=== PATIENT | female | born 1990 | race American Indian/Alaskan Native ===

== ENCOUNTER 2016-10-09 14:42 | Emergency (ER) | payer MEDICAID ==
[2016-10-09 16:51] LABS: Basophils % (Auto) 0.9 % (0.0-1.8); Eosinophils % (Auto) 1.7 % (0.0-4.3); Hematocrit 39.4 % (30.3-42.9); Hemoglobin 13.1 gm/dl (10.1-14.3); Mean Corpuscular HGB Conc 33 % (30-34); Mean Corpuscular Hemoglobin 29 pg (28-32); Mean Corpuscular Volume 89 fl (79-97); Platelet Count 219 K/mm3 (140-440); Red Blood Count 4.44 M/mm3 (3.65-5.03); Red Cell Distribution Width 15.2 % (13.2-15.2); White Blood Count 7.5 K/mm3 (4.5-11.0)
[2016-10-09 17:04] LABS: Bilirubin,Urine NEG (Negative); Blood,Urine LG (Negative); Ketones,Urine 20 mg/dL (Negative); Leukocyte Esterase,Urine NEG (Negative); Mucus,Urine FEW /HPF; Nitrite,Urine NEG (Negative); Protein,Urine <15 mg/dL mg/dL (Negative); Urobilinogen,Urine < 2.0 mg/dL (<2.0)
[2016-10-09 17:07] LABS: WBC,Urine < 1.0 /HPF (0.0-6.0)
[2016-10-09] MEDS ORDERED: ZOFRAN IV ONE (18:18)
[2016-10-09 19:28] LABS: Anion Gap 21 mmol/L; BUN/Creatinine Ratio 11.66; Blood Urea Nitrogen 7 mg/dL (7-17); Calcium 8.8 mg/dL (8.4-10.2); Carbon Dioxide 23 mmol/L (22-30); Chloride 97.4 mmol/L (98-107); Glucose 79 mg/dL (65-100); Potassium 4.3 mmol/L (3.6-5.0); Sodium 137 mmol/L (137-145)
[2016-10-09] MEDS ORDERED: MORPHINE IV ONE (19:38)
--- NOTE | 2016-10-09 20:12 | Emergency Department Report ---
ED General Adult HPI - General Chief complaint: Extremity Injury, Lower Stated complaint: RT LEG SWOLLEN/PAIN Time Seen by Provider: 10/09/16 20:11 Source: patient, RN notes reviewed Mode of arrival: Ambulatory Limitations: No Limitations - History of Present Illness Initial comments: This is a 26-year-old female. She is previously unknown to me. She is 4, para 3. Last menstrual period is 09/23/2016. The patient does not currently have an [facility] doctor. The patient presents to the ER with 2 complaints. The first complaint is right lower extremity pain and swelling. This is been going on for 3 days. The pain is achy. It worsens with range of motion. It decreases with rest. There is no chest pain. There is no shortness of breath. There is no contralateral leg pain or leg swelling. No recent trips greater than 4 hours. No recent hospital admissions. The patient's second complaint is abdominal pain and vaginal bleeding. This is crampy. This is been going on for the past day or so. There is no nausea, vomiting or diarrhea. No irritative or obstructive urinary symptoms. -: Gradual Location: abdomen, genitals, right, lower extremity Severity scale (0 -10): 10 Quality: aching Consistency: intermittent Improves with: other (per hpi) Worsens with: other (per hpi) Associated Symptoms: denies: confusion, chest pain, cough, headaches, loss of appetite, malaise, nausea/vomiting, seizure, shortness of breath, syncope, weakness - Related Data Previous Rx's Medication Instructions Recorded Last Taken Type Doxylamine/Pyridoxine HCl 1 each PO QHS PRN #30 tablet. 10/09/16 Unknown Rx [Luciana Dove 10-10 mg Tablet] Vit W-Ca,Fe,FA(<1 mg) 1 each PO QDAY #30 tablet 10/09/16 Unknown Rx [ Vitamins] Allergies Allergy/AdvReac Type Severity Reaction Status Date / Time ibuprofen AdvReac stomach Verified 10/09/16 16:13 irritation orange juice AdvReac Itching Verified 10/09/16 16:13 ED Review of Systems ROS: Stated complaint: RT LEG SWOLLEN/PAIN Other details as noted in HPI ED Past Medical Hx - Past Medical History Hx Hypertension: No Hx Diabetes: No Hx Deep Vein Thrombosis: No Hx GERD: Yes Hx Sickle Cell Disease: No (trait) Hx Seizures: No Hx Asthma: No Hx HIV: No Additional medical history: Gastic ulcers. OBESITY - Surgical History Hx Cholecystectomy: Yes Additional Surgical History: x2. pins in each hip - Social History Smoking Status: Current Every Day Smoker Substance Use Type: Alcohol - Medications Home Medications: Home Medications Medication Instructions Recorded Confirmed Last Taken Type Doxylamine/Pyridoxine HCl 1 each PO QHS PRN #30 tablet. 10/09/16 Unknown Rx [Diclegis Dr 10-10 mg Tablet] Vit W-Ca,Fe,FA(<1 mg) 1 each PO QDAY #30 tablet 10/09/16 Unknown Rx [ Vitamins] ED Physical Exam - General Limitations: No Limitations General appearance: alert, in no apparent distress - Head Head exam: Present: atraumatic, normocephalic - Eye Eye exam: Present: normal appearance, EOMI. Absent: nystagmus - ENT ENT exam: Present: normal exam, normal orophraynx, mucous membranes moist, normal external ear exam - Neck Neck exam: Present: normal inspection, full ROM. Absent: tenderness, meningismus - Respiratory Respiratory exam: Present: normal lung sounds bilaterally. Absent: respiratory distress, wheezes, rales, rhonchi, stridor, chest wall tenderness, accessory muscle use, decreased breath sounds, prolonged expiratory - Cardiovascular Cardiovascular Exam: Present: regular rate, normal rhythm, normal heart sounds. Absent: bradycardia, tachycardia, irregular rhythm, systolic murmur, diastolic murmur, rubs, gallop - GI/Abdominal GI/Abdominal exam: Present: soft, normal bowel sounds. Absent: distended, tenderness, guarding, rebound, rigid, pulsatile mass - External exam: Present: normal external exam Speculum exam: Present: vaginal bleeding Bi-manual exam: Present: normal bi-manual exam, other (escorted by Denisha Sanchez). Absent: cervical motion tendernes, adnexal tenderness, adnexal mass - Extremities Exam Extremities exam: Present: normal inspection, full ROM, tenderness, normal capillary refill, calf tenderness (rle pain swelling) - Back Exam Back exam: Present: normal inspection, full ROM. Absent: tenderness, CVA tenderness (R), CVA tenderness (L), muscle spasm, paraspinal tenderness, vertebral tenderness - Neurological Exam Neurological exam: Present: alert, oriented X3, normal gait, other (Extraocular movements intact. Tongue midline. No facial droop. Facial sensation intact to light touch in the V1, V2, V3 distribution bilaterally. 5 and 5 strength in 4 extremities.. Sensation is intact to light touch in 4 extremities.). Absent : motor sensory deficit - Psychiatric Psychiatric exam: Present: normal affect, normal mood - Skin Skin exam: Present: warm, dry, intact, normal color. Absent: rash ED Course Vital Signs 10/09/16 10/09/16 16:16 22:03 Temperature 98.2 F 98.5 F Pulse Rate 100 H 98 H Respiratory 19 18 Rate Blood Pressure 153/103 Blood Pressure 132/82 [Left] O2 Sat by Pulse 100 99 Oximetry - Reevaluation(s) Reevaluation #1: 10/09/16 22:08 differential diagnosis: Right lower extremity DVT, ectopic , heterotopic , failure, miscarriage Assessment and plan: 26-year-old female with 2 issues. Patient's right lower extremity pain and swelling is found to be a right peroneal vein DVT, distal to the popliteal trifurcation. Given that she is actively bleeding, and that she is , and that a pelvic ultrasound does not definitively exclude an ectopic , I will withhold systemic anticoagulation. The patient is not a candidate for aspirin or ibuprofen as she is allergic to these medications. I have discussed this with vascular surgery on-call, Dr. Reis. We agree that the patient is hemodynamically stable, and reliable, and she can follow-up as an outpatient for repeat right lower extremity DVT study and 1 week to assure that there is no clot propagation. Intervention the patient's , a pelvic ultrasound suggested a small cystic focus in the endometrial cavity, corresponding to 5 weeks, likely representing early viable gestation versus early gestational failure. Quantitative hCG was approximately 600. This was discussed with gynecology, Dr. Briggs, she agreed with plan for patient to return in 2 days for repeat quantitative hCG, pelvic rest, and close follow- up. from vaginal bleeding perspective, the patient is hemodynamically stable without tender abdomen, she does not require admission for observation for this. For a right lower extremity DVT, possibly provoked by , distal to the trifurcation, patient does not require admission, and will need to follow-up. ED Medical Decision Making - Lab Data Result diagrams: 10/09/16 16:26 10/09/16 16:46 Vital Signs 10/09/16 16:16 Temperature 98.2 F Pulse Rate 100 H Respiratory 19 Rate Blood Pressure 153/103 O2 Sat by Pulse 100 Oximetry Lab Results 10/09/16 10/09/16 10/09/16 Range/Units 16:26 16:26 16:46 WBC 7.5 (4.5-11.0) K/mm3 RBC 4.44 (3.65-5.03) M/mm3 Hgb 13.1 (10.1-14.3) gm/dl Hct 39.4 (30.3-42.9) % MCV 89 (79-97) fl MCH 29 (28-32) pg MCHC 33 (30-34) % RDW 15.2 (13.2-15.2) % Plt Count 219 (140-440) K/mm3 Lymph % (Auto) 20.9 (13.4-35.0) % [place] % (Auto) 5.3 (0.0-7.3) % Eos % (Auto) 1.7 (0.0-4.3) % Baso % (Auto) 0.9 (0.0-1.8) % Lymph # 1.6 (1.2-5.4) K/mm3 [place] # 0.4 (0.0-0.8) K/mm3 Eos # 0.1 (0.0-0.4) K/mm3 Baso # 0.1 (0.0-0.1) K/mm3 Seg Neutrophils % 71.2 H (40.0-70.0) % Seg Neutrophils # 5.4 (1.8-7.7) K/mm3 Sodium (137-145) mmol/L Potassium (3.6-5.0) mmol/L Chloride (98-107) mmol/L Carbon Dioxide (22-30) mmol/L Anion Gap mmol/L BUN (7-17) mg/dL Creatinine (0.7-1.2) mg/dL Estimated GFR ml/min BUN/Creatinine Ratio % Glucose (65-100) mg/dL Calcium (8.4-10.2) mg/dL HCG, Qual Positive (Negative) HCG, Quant (0-4) mIU/mL Urine Color Yellow (Yellow) Urine Turbidity Clear (Clear) Urine pH 7.0 (5.0-7.0) Ur Specific [place] 1.019 (1.003-1.030) Urine Protein <15 mg/dl (Negative) mg/dL Urine Glucose (UA) Neg (Negative) mg/dL Urine Ketones 20 (Negative) mg/dL Urine Blood Lg (Negative) Urine Nitrite Neg (Negative) Urine Bilirubin Neg (Negative) Urine Urobilinogen < 2.0 (<2.0) mg/dL Ur Leukocyte Esterase Neg (Negative) Urine WBC (Auto) < 1.0 (0.0-6.0) /HPF Urine RBC (Auto) 2.0 (0.0-6.0) /HPF U Epithel Cells (Auto) 1.0 (0-13.0) /HPF Urine Mucus Few /HPF 10/09/16 10/09/16 Range/Units 16:46 16:46 WBC (4.5-11.0) K/mm3 RBC (3.65-5.03) M/mm3 Hgb (10.1-14.3) gm/dl Hct (30.3-42.9) % MCV (79-97) fl MCH (28-32) pg MCHC (30-34) % RDW (13.2-15.2) % Plt Count (140-440) K/mm3 Lymph % (Auto) (13.4-35.0) % [place] % (Auto) (0.0-7.3) % Eos % (Auto) (0.0-4.3) % Baso % (Auto) (0.0-1.8) % Lymph # (1.2-5.4) K/mm3 [place] # (0.0-0.8) K/mm3 Eos # (0.0-0.4) K/mm3 Baso # (0.0-0.1) K/mm3 Seg Neutrophils % (40.0-70.0) % Seg Neutrophils # (1.8-7.7) K/mm3 Sodium 137 (137-145) mmol/L Potassium 4.3 (3.6-5.0) mmol/L Chloride 97.4 L (98-107) mmol/L Carbon Dioxide 23 (22-30) mmol/L Anion Gap 21 mmol/L BUN 7 (7-17) mg/dL Creatinine 0.6 L (0.7-1.2) mg/dL Estimated GFR > 60 ml/min BUN/Creatinine Ratio 11.66 % Glucose 79 (65-100) mg/dL Calcium 8.8 (8.4-10.2) mg/dL HCG, Qual (Negative) HCG, Quant 622.4 H (0-4) mIU/mL Urine Color (Yellow) Urine Turbidity (Clear) Urine pH (5.0-7.0) Ur Specific [place] (1.003-1.030) Urine Protein (Negative) mg/dL Urine Glucose (UA) (Negative) mg/dL Urine Ketones (Negative) mg/dL Urine Blood (Negative) Urine Nitrite (Negative) Urine Bilirubin (Negative) Urine Urobilinogen (<2.0) mg/dL Ur Leukocyte Esterase (Negative) Urine WBC (Auto) (0.0-6.0) /HPF Urine RBC (Auto) (0.0-6.0) /HPF U Epithel Cells (Auto) (0-13.0) /HPF Urine Mucus /HPF - Radiology Data Radiology results: report reviewed, image reviewed Transvaginal ultrasound demonstrates a small cystic focus in the endometrial cavity, corresponding to 5 weeks, 0 days gestational age, most likely representing a viable early gestation versus early gestational failure. Follow- up studies recommended, possible corpus luteum cyst, ectopic gestation not excluded [facility] 1990 [facility]# [id number] 10/09/16 17:32 - Radiology Dept. Note by MICHAEL CAPELLAN [facility]ly [facility] Num: [id number] : 1990 Patient Age: 26 VASCULAR LAB PRELIMINARY REPORT RLE VENOUS DOPPLER COMPLETED ACUTE DVT NOTED RT PERN V PATENT VARICOSE VEINS NOTED MID MEDIAL CALF DIFFICULT EXAM DUE TO PT MOVEMENT ER CHARGE NURSE INFORMED Initialized on 10/09/16 17:32 - END OF NOTE Critical care attestation.: If time is entered above; I have spent that time in minutes in the direct care of this critically ill patient, excluding procedure time. ED Disposition Clinical Impression: , Right leg pain Disposition: DISCHARGED TO HOME OR SELFCARE Is pt being admited?: No Does the pt Need Aspirin: No Condition: Stable Instructions: Deep Venous Thrombosis (ED), Threatened Miscarriage (ED) Additional Instructions: As we discussed, you have been found to have multiple issues today that need follow-up. you are found to be . is most likely actively miscarrying. However, there is the possibility of an ectopic , which means the may be outside the uterus. Return in 48 hours for repeat quantitative hCG, and possible ultrasound. Not following up in a timely fashion as recommended may result in bleeding, disability, . Rest and avoid heavy lifting, do not engage in sexual activity. Take Tylenol every 4-6 hours as needed for pain. In addition, you found to have a right lower extremity blood clot/DVT. Follow- up on October 16 for a repeat right lower extremity ultrasound to ascertain if the clot has spread. Not following up as recommended may result in an undiagnosed clot propagation, which could result in cardiac arrest, disability, . I do recommend that you follow-up with either a primary care doctor or front desk specialist within the next week to ascertain if you have a hypercoagulable state. Dr. Sean Son is a local primary care doctor. Dr. Desai is a local front desk specialist. Follow up with a financial planning consultant within the next week. My [facility] is a local gynecology practice. Return to the ER right away with new pain, worsened pain, migration of pain, intractable nausea or vomiting, chest pain or shortness of breath, inability to tolerate liquid feeds. Referrals: PRIMARY CARE, [Primary Care Provider] - 3-5 Days SEAN SON MD [Staff Physician] - 3-5 Days KEYUR DESAI MD [Staff Physician] - 3-5 Days NILAY HAN MD [Staff Physician] - 3-5 Days [facility] [Provider Group] - 3-5 Days
--- NOTE | 2016-10-09 20:40 | Ultrasound Report ---
FINAL REPORT PROCEDURE: US OB TRANSVAGINAL TECHNIQUE: Real-time transvaginal sonography of the uterus, placenta, amniotic fluid, adnexa, and fetus was performed with image documentation. Measurements were obtained to determine age/size. M-mode Doppler was used to document heartbeat. CPT 13247 HISTORY: pelvic pain, vag bleeding COMPARISON: No prior studies are available for comparison. FINDINGS: This study is grossly limited due to patient's body habitus and patient's inability to tolerate the exam secondary to severe pain There is a small ill-defined cystic structure in the uterine cavity measuring about 2.9 millimeters corresponding to 5 weeks and 0 days of gestational age. An obvious pole is not visualized. Uterus is retroverted and measures 9 x 5 x 6 centimeters. Right ovary is not visualized. Left ovary demonstrated small cystic lesions largest measuring 2.7 centimeters. IMPRESSION: This study is grossly limited due to patient's body habitus and the patient's inability to tolerate. There is a small cystic focus in the endometrial cavity corresponding to 5 weeks and 0 days of gestational age most likely representing a very early viable gestation versus early gestation failure. A pole is not visualized at the present time. Follow-up studies are recommended. 2.7 centimeters cystic lesion in the left ovary may represent a corpus luteal cyst. Please note that an ectopic gestation cannot be excluded on the sonographic findings alone
--- NOTE | 2016-10-09 20:41 | Ultrasound Report ---
FINAL REPORT PROCEDURE: US OB \T\lt; = 14 WEEKS FETUS TECHNIQUE: Real-time transabdominal sonography of the uterus, placenta, amniotic fluid, adnexa, and fetus was performed with image documentation. Measurements were obtained to determine age/size. M-mode Doppler was used to document heartbeat. CPT 04472 HISTORY: pelvic pain, vag bleeding COMPARISON: No prior studies are available for comparison. FINDINGS: This study is grossly limited due to patient's body habitus and patient's inability to tolerate the exam secondary to severe pain There is a small ill-defined cystic structure in the uterine cavity measuring about 2.9 millimeters corresponding to 5 weeks and 0 days of gestational age. An obvious pole is not visualized. Uterus is retroverted and measures 9 x 5 x 6 centimeters. Right ovary is not visualized. Left ovary demonstrated small cystic lesions largest measuring 2.7 centimeters. IMPRESSION: This study is grossly limited due to patient's body habitus and the patient's inability to tolerate. There is a small cystic focus in the endometrial cavity corresponding to 5 weeks and 0 days of gestational age most likely representing a very early viable gestation versus early gestation failure. A pole is not visualized at the present time. Follow-up studies are recommended. 2.7 centimeters cystic lesion in the left ovary may represent a corpus luteal cyst. Please note that an ectopic gestation cannot be excluded on the sonographic findings alone
[2016-10-09 20:53] LABS: INR 1.11 (0.87-1.13)
[2016-10-09 20:54] LABS: Partial Thromboplastin Time 30.9 Sec. (24.2-36.6)
[2016-10-09] MEDS ORDERED: NACL 0.9% 500 ML 500 ML IV SCH (21:00)
[2016-10-09] MEDS ORDERED: TYLENOL PO ONE (22:28)
[2016-10-09 23:34] VITALS: BP 149/88
--- NOTE | 2016-10-10 07:02 | Vascular Lab Report ---
Right Lower Extremity Venous Duplex Study: Reason for Exam: Right leg pain. Comments on the Right: Acute deep venous thrombosis noted in the peroneal vein.. The remaining veins visualized are freely compressible without evidence of internal echogenicity. Spontaneous and phasic flow is present proximally. Multiple varicosities noted Comments on the Left: A limited duplex study was done of the proximal veins of the left lower extremity. All veins visualized are freely compressible without evidence of internal echogenicity. Flow is spontaneous and phasic throughout. No evidence of acute or chronic thrombus is seen in any of the vessels visualized. Impression: Acute intra-popliteal deep venous thrombosis in the right lower extremity.
== END 2016-10-09 23:33 | disposition home or self-care (01) ==
LOC: ED 14:42
DX: O20.9 Hemorrhage in early pregnancy, unspecified (principal); O26.891 Other specified pregnancy related conditions, first trimester; O99.331 Smoking (tobacco) complicating pregnancy, first trimester; M79.604 Pain in right leg; F17.200 Nicotine dependence, unspecified, uncomplicated; K21.9 Gastro-esophageal reflux disease without esophagitis; E66.9 Obesity, unspecified; Z3A.01 Less than 8 weeks gestation of pregnancy; Z88.6 Allergy status to analgesic agent; Z91.018 Allergy to other foods
CPT/HCPCS: 36415; 76801; 76817; 80048; 81001; 84702; 84703; 85025; 85610; 85730; 86850; 86900; 86901; 93971; 96374; 96375; 99285; J2270; J2405

== ENCOUNTER 2016-12-18 10:52 | Emergency (ER) | payer MEDICAID ==
[2016-12-18] MEDS ORDERED: ZOFRAN IV ONE ×2 (11:19→11:29)
[2016-12-18] MEDS ORDERED: TORADOL IV ONE (11:19)
[2016-12-18] MEDS ORDERED: SUBLIMAZE IV ONE ×2 (11:29→13:09)
--- NOTE | 2016-12-18 11:39 | Emergency Department Report ---
HPI - General Chief Complaint: Back Pain/Injury Time Seen by Provider: 12/18/16 11:24 - HPI HPI: Room 26 The patient is a 26-year-old female presenting with a chief complaint back pain. Patient states yesterday she developed pain in her left back radiating around the left flank. Patient describes pain as pounding in nature. Patient admits to nausea vomiting and diarrhea which began yesterday. Patient denies fever, dysuria or hematuria. The patient gives her pain a score of 11/10 Location: Left flank Duration: constant since yesterday Quality: Pounding Severity: 11/10 Modifying factors: [see above] Context: [see above] Mode of transportation: [not driving] ED Past Medical Hx - Past Medical History Previous Medical History?: Yes Hx Deep Vein Thrombosis: Yes Hx GERD: Yes Hx Sickle Cell Disease: Yes (sickle cell trait) Additional medical history: Gastic ulcers. OBESITY - Surgical History Past Surgical History?: Yes Hx Cholecystectomy: Yes Additional Surgical History: x2. pins in each hip - Family History Family history: no significant - Social History Smoking Status: Current Every Day Smoker (1/2 pack per day) Substance Use Type: None (denies illicit drug use) - Medications Home Medications: Home Medications Medication Instructions Recorded Confirmed Last Taken Type Famotidine [Pepcid] 20 mg PO BID #30 tablet 12/18/16 Unknown Rx Promethazine [Phenergan TAB] 25 mg PO Q6HR PRN #20 tab 12/18/16 Unknown Rx Promethazine [Phenergan] 25 mg MT Q6HR PRN #5 supp.rect 12/18/16 Unknown Rx traMADol [Ultram] 50 mg PO Q6HR PRN #14 tablet 12/18/16 Unknown Rx ED Review of Systems ROS: Stated complaint: BACK/ABD PAIN Other details as noted in HPI Comment: All other systems reviewed and negative Constitutional: denies: chills, fever Eyes: denies: eye pain, eye discharge, vision change ENT: denies: ear pain, throat pain Respiratory: denies: cough, shortness of breath, wheezing Cardiovascular: denies: chest pain, palpitations Endocrine: no symptoms reported Gastrointestinal: abdominal pain, nausea, vomiting, diarrhea Musculoskeletal: back pain Skin: denies: rash, lesions Neurological: denies: headache, weakness, paresthesias Psychiatric: denies: anxiety, depression Hematological/Lymphatic: denies: easy bleeding, easy bruising Physical Exam - Physical Exam Vital Signs: Vital Signs 12/18/16 11:13 Temperature 98.2 F Pulse Rate 87 Blood Pressure 191/115 O2 Sat by Pulse 100 Oximetry Physical Exam: GENERAL: The patient is well-developed well-nourished female lying on stretcher rocking back and forth appearing to be in moderate discomfort. [] HEENT: Normocephalic. Atraumatic. Extraocular motions are intact. Patient has moist mucous membranes. NECK: Supple. Trachea midline CHEST/LUNGS: Clear to auscultation. There is no respiratory distress noted. HEART/CARDIOVASCULAR: Regular. There is no tachycardia. There is no gallop rub or murmur. ABDOMEN: Abdomen is soft but patient complains of diffuse tenderness. Patient has normal bowel sounds. There is no abdominal distention. SKIN: There is no rash. There is no edema. There is no diaphoresis. NEURO: The patient is awake, alert, and oriented. The patient is cooperative. The patient has normal speech MUSCULOSKELETAL: There is no evidence of acute injury. ED Course Vital Signs 12/18/16 11:13 Temperature 98.2 F Pulse Rate 87 Blood Pressure 191/115 O2 Sat by Pulse 100 Oximetry - Reevaluation(s) Reevaluation #1: 12/18/16 14:11 Patient resting comfortably in bed. Patient informed of workup results. Patient advised to follow-up with gastroenterology ED Medical Decision Making - Lab Data Result diagrams: 12/18/16 11:31 12/18/16 11:31 Laboratory Tests 12/18/16 12/18/16 12/18/16 11:31 11:31 11:31 WBC 4.6 RBC 4.68 Hgb 13.8 Hct 40.9 MCV 88 MCH 30 MCHC 34 RDW 15.0 Plt Count 233 Lymph % (Auto) 17.5 [place] % (Auto) 6.5 Eos % (Auto) 0.5 Baso % (Auto) 0.5 Lymph # 0.8 L [place] # 0.3 Eos # 0.0 Baso # 0.0 Seg Neutrophils % 75.0 H Seg Neutrophils # 3.4 Sodium 138 Potassium 3.7 Chloride 100.8 Carbon Dioxide 19 L Anion Gap 22 BUN 6 L Creatinine 0.7 Estimated GFR > 60 BUN/Creatinine Ratio 8.57 Glucose 97 Calcium 9.0 Total Bilirubin 0.70 AST 15 ALT 14 Alkaline Phosphatase 76 Total Protein 7.5 Albumin 4.4 Albumin/Globulin Ratio 1.4 HCG, Quant < 2 Urine Color Urine Turbidity Urine pH Ur Specific [place] Urine Protein Urine Glucose (UA) Urine Ketones Urine Blood Urine Nitrite Urine Bilirubin Urine Urobilinogen Ur Leukocyte Esterase Urine WBC (Auto) Urine RBC (Auto) U Epithel Cells (Auto) Urine Mucus 12/18/16 Unknown WBC RBC Hgb Hct MCV MCH MCHC RDW Plt Count Lymph % (Auto) [place] % (Auto) Eos % (Auto) Baso % (Auto) Lymph # [place] # Eos # Baso # Seg Neutrophils % Seg Neutrophils # Sodium Potassium Chloride Carbon Dioxide Anion Gap BUN Creatinine Estimated GFR BUN/Creatinine Ratio Glucose Calcium Total Bilirubin AST ALT Alkaline Phosphatase Total Protein Albumin Albumin/Globulin Ratio HCG, Quant Urine Color Yellow Urine Turbidity Clear Urine pH 8.0 H Ur Specific [place] 1.025 Urine Protein 100 mg/dl Urine Glucose (UA) Neg Urine Ketones 80 Urine Blood Neg Urine Nitrite Neg Urine Bilirubin Neg Urine Urobilinogen < 2.0 Ur Leukocyte Esterase Neg Urine WBC (Auto) 1.0 Urine RBC (Auto) 1.0 U Epithel Cells (Auto) 2.0 Urine Mucus Few - Differential Diagnosis renal colic, pyelonephritis, malingering Critical care attestation.: If time is entered above; I have spent that time in minutes in the direct care of this critically ill patient, excluding procedure time. ED Disposition Clinical Impression: Abdominal pain Disposition: [id number] TO HOME OR SELFCARE Is pt being admited?: No Does the pt Need Aspirin: No Condition: Stable Instructions: Acute Abdominal Pain (ED) Additional Instructions: Return to the emergency department immediately should you develop worsening symptoms, fever, inability to tolerate food or liquid or any other concerns. Prescriptions: Famotidine [Pepcid] 20 mg PO BID #30 tablet Promethazine [Phenergan TAB] 25 mg PO Q6HR PRN #20 tab PRN Reason: Nausea Promethazine [Phenergan] 25 mg MT Q6HR PRN #5 supp.rect PRN Reason: Vomiting traMADol [Ultram] 50 mg PO Q6HR PRN #14 tablet PRN Reason: Pain Referrals: SHIRIN AGUERO MD [Staff Physician] - 3-5 Days (Dr. Aguero is a primary physician. Please follow up with him to be established as a patient) PILAR HAQ MD [Staff Physician] - 3-5 Days (Dr. Haq is a corrective therapy aide. Please follow up with him for further evaluation) Time of Disposition: 14:13
[2016-12-18 11:42] LABS: Basophils % (Auto) 0.5 % (0.0-1.8); Eosinophils % (Auto) 0.5 % (0.0-4.3); Hematocrit 40.9 % (30.3-42.9); Hemoglobin 13.8 gm/dl (10.1-14.3); Mean Corpuscular HGB Conc 34 % (30-34); Mean Corpuscular Hemoglobin 30 pg (28-32); Mean Corpuscular Volume 88 fl (79-97); Platelet Count 233 K/mm3 (140-440); Red Blood Count 4.68 M/mm3 (3.65-5.03); White Blood Count 4.6 K/mm3 (4.5-11.0)
[2016-12-18 11:52] LABS: Bilirubin,Urine NEG (Negative); Blood,Urine NEG (Negative); Ketones,Urine 80 mg/dL (Negative); Leukocyte Esterase,Urine NEG (Negative); Mucus,Urine FEW /HPF; Nitrite,Urine NEG (Negative); Urobilinogen,Urine < 2.0 mg/dL (<2.0)
[2016-12-18 12:03] LABS: Alanine Aminotransferase 14 units/L (7-56); Albumin 4.4 g/dL (3.9-5); Albumin/Globulin Ratio 1.4 %; Alkaline Phosphatase 76 units/L (35-129); Anion Gap 22 mmol/L; BUN/Creatinine Ratio 8.57; Blood Urea Nitrogen 6 mg/dL (7-17); Carbon Dioxide 19 mmol/L (22-30); Chloride 100.8 mmol/L (98-107); Glucose 97 mg/dL (65-100); Potassium 3.7 mmol/L (3.6-5.0); Sodium 138 mmol/L (137-145); Total Protein 7.5 g/dL (6.3-8.2)
[2016-12-18 12:17] VITALS: BP 167/90
[2016-12-18] MEDS ORDERED: REGLAN IV ONE (13:02)
[2016-12-18] MEDS ORDERED: TORADOL ONE (13:08)
[2016-12-18] MEDS ORDERED: BENADRYL ONE (13:10)
[2016-12-18] MEDS ORDERED: BENADRYL IV ONE (13:10)
--- NOTE | 2016-12-18 14:01 | Cat Scan Report ---
CT ABDOMEN AND PELVIS WITHOUT CONTRAST INDICATION: Left flank pain. COMPARISON: 12/08/2014 FINDINGS: Noncontrast abdomen and pelvis CT performed. LUNG BASES: Nonspecific air-filled distal esophageal wall prominence, not excluded for gastroesophageal reflux and/or hiatal hernia, amongst others. ABDOMEN: Please note that sensitivity to detect small visceral lesions is limited due to the absence of intravenous or oral contrast. However, grossly unremarkable unenhanced liver, spleen, pancreas, adrenals, kidneys, non-aneurysmal abdominal aorta and IVC. No ascites or size significant adenopathy. Stable cholecystectomy clips. Nonopacified GI tract evaluation limited, though grossly nonobstructive. Normal appendix. PELVIS: Urinary bladder, uterus, adnexa/ovaries and the rectosigmoid demonstrate grossly normal CT appearance. Few small pelvic phleboliths. No free fluid or definite size significant adenopathy. Bilateral femoral head/neck threaded screws creating streak artifact again noted. Bilateral SI joint degenerative changes. Slight thoracolumbar degenerative spurring. CONCLUSION: No acute CT abnormality with few incidental findings, as above. Thank you for the opportunity to participate in this patient's care.
== END 2016-12-18 14:20 | disposition home or self-care (01) ==
LOC: ED 10:52
DX: R10.9 Unspecified abdominal pain (principal)
CPT/HCPCS: 36415; 74176; 80053; 81001; 84702; 85025; 96374; 96375; 96376; 99284; J1200; J1885; J2405; J2765; J3010